=== PATIENT | female | born 1980 ===

== ENCOUNTER 2023-10-14 11:17 | Emergency (ER) | payer OTHER ==
[~2023-10-14] VITALS: Ht 170.2 cm; Wt 65.9 kg
[2023-10-14 11:21] VITALS: BP 109/79; PULSE 104; RESP 18; TEMP 97.8
[2023-10-14] MEDS ORDERED: CEPHALEXIN MONOHYDRATE 500 MG CAPSULE PO ONE (14:15)
[2023-10-14] MEDS ORDERED: LIDOCAINE 1% 10 ML VIAL SQ ONE (14:15)
[2023-10-14] MEDS ORDERED: OxyCODONE HCL/ACETAMINOPHEN 5-325 MG TABLET PO ONE (14:15)
[2023-10-14] MEDS ORDERED: SULFAMETHOX/TRIMETH DS 800-160 MG/TABLET PO ONE (14:15)
[2023-10-14] MEDS ORDERED: SULF-261 PO (15:30)
[2023-10-14] MEDS ORDERED: CEPH-558 PO (15:30)
== END 2023-10-14 15:45 | disposition home or self-care (01) ==
LOC: EMS 11:18
DX: L02.416 Cutaneous abscess of left lower limb (principal)
CPT/HCPCS: 99284; 10060; J3490

== ENCOUNTER 2023-10-16 13:55 | Emergency (ER) | payer OTHER ==
[~2023-10-16] VITALS: Ht 170.2 cm; Wt 65.9 kg
[~2023-10-16 13:55] MED LIST: CEPH-558 PO; SULF-261 PO
[2023-10-16 14:15] VITALS: TEMP 98.1
[2023-10-16 14:40] VITALS: BP 106/71; PULSE 81; RESP 16
== END 2023-10-16 15:36 | disposition home or self-care (01) ==
LOC: EMS 14:00
DX: L02.416 Cutaneous abscess of left lower limb (principal)
CPT/HCPCS: 99281; Z7502